=== PATIENT | male | born 1960 | race Two or more races ===

== ENCOUNTER 2017-09-06 06:25 | Day surgery (SDC) | payer MEDICARE, OTHER ==
[2017-08-29 10:45] VITALS: BMI 37.4
[2017-09-06 07:38] VITALS: BP 134/72; PULSE 62; RESP 20; TEMP 98.4; O2SAT 95
[2017-09-06] MEDS ORDERED: Lidocaine 2% Inj (20ml) ONE (07:46)
[2017-09-06] MEDS ORDERED: Iodixanol 320 MG/ML 100 ML BOTTLE IV ONE (07:47)
[2017-09-06 08:16] LABS: CALCIUM 8.4 mg/dl (8.6-10.4); POTASSIUM 4.4 mmol/L (3.6-5.2)
[2017-09-06] MEDS ORDERED: Midazolam 2 MG/2 ML VIAL ONE ×5 (09:05→12:04)
[2017-09-06] MEDS ORDERED: Nitroglycerin 50mg in D5W 50 MG/250 ML BOTTLE IV ONE (09:10)
--- NOTE | 2017-09-06 23:53 | CARDCATH ---
PROCEDURE DATE: 09/06/2017 INDICATIONS: Mr. Tej Pardo is a pleasant 57-year-old male with past medical history significant for hypertension, dyslipidemia, obesity, end-stage renal disease on hemodialysis, who was being evaluated for preoperative renal transplant with stress test, which showed mild ischemia in the anterolateral wall for which he underwent a cardiac catheterization. PROCEDURE PERFORMED: Left heart catheterization with selective left and right coronary angiograms, left ventriculogram, 6-[place] right radial arterial access, and wrist band for hemostasis. TECHNIQUES OF PROCEDURE: After obtaining informed consent, patient was brought to the cardiac catheterization suite in post-absorptive and non-sedated state. The patient was prepped and draped in the usual sterile fashion. A 2% lidocaine was used for infiltration of anesthesia. Using modified Seldinger technique, a 6-[place] sheath was introduced into the right radial artery. Subsequently under fluoroscopic guidance, a [place] catheter was advanced and tightly engaged into the right coronary artery which had anterior takeoff. Subsequently, the [place] was used to engage the left coronary artery system. The [place] was retrieved over a J-wire and the JL5 and multipurpose catheters were used to engage the left and right coronary artery system. Angiograms were obtained in different orthogonal views. LV gram was obtained using the [place] catheter. HEMODYNAMIC FINDINGS: Left ventricular end-diastolic pressure was 25 mmHg. There was no gradient noted upon the aortic valve. There was no AI, mild PR. Left ventricular ejection fraction estimated to be 55% to 60%. CORONARY ANATOMY: Left main is a large sized vessel bifurcates into left anterior descending and left circumflex coronary artery. Left circumflex, large sized vessel runs in the AV groove, gives off an obtuse marginal branch which gives off four obtuse marginal branches, which are [id number] sized vessels. The third obtuse marginal branch has a proximal 55% stenosis. Circumflex, large sized vessel, co-dominant system. Left anterior descending artery, large sized vessel gives off three small diagonal branches. Mid of the left anterior descending artery has a 50% stenosis, angiographically nonsignificant. Right coronary artery, anterior takeoff, large sized vessel gives off PLV branch. Proximal PLV has 50% stenosis. IMPRESSION: Nonobstructive coronary artery disease, normal left ventricular ejection fraction, mildly elevated filling pressures. RECOMMENDATIONS: Guideline-directed therapy for nonobstructive coronary artery disease. Patient is cleared to proceed with renal transplant with low risk for perioperative cardiac events. Torsten Dobson MD
== END 2017-09-06 15:35 | disposition home or self-care (01) ==
LOC: C.CATHLAB 06:25
PROVIDERS: ATTEND Internal Medicine Interventional Cardiology
DX: I25.10 Atherosclerotic heart disease of native coronary artery without angina pectoris (principal); I12.0 Hypertensive chronic kidney disease with stage 5 chronic kidney disease or end stage renal disease; E78.5 Hyperlipidemia, unspecified; N18.6 End stage renal disease; Z99.2 Dependence on renal dialysis; E66.9 Obesity, unspecified
CPT/HCPCS: 36415; 80048; 93458; J1644; J2250; J3010; Q9967